=== PATIENT | male | born 1930 | race Caucasian/White ===

== ENCOUNTER 2017-11-04 06:49 | Inpatient (IN) | payer MEDICARE ==
[2017-11-03 11:08] LABS: BASOPHILS % (AUTO) 0.5 % (0-1); EOSINOPHILS # (AUTO) 0.1 X10'3 (0-0.9); EOSINOPHILS % (AUTO) 2.9 % (0-6); HEMATOCRIT 33.3 % (42.0-52.0); LYMPHOCYTES # (AUTO) 0.7 X10'3 (1.1-4.8); LYMPHOCYTES % (AUTO) 15.5 % (21-51); MEAN CORPUSCULAR HEMOGLOBIN 36.7 PG (27.0-31.0); MEAN CORPUSCULAR HGB CONC 33.2 % (33.0-36.5); MEAN CORPUSCULAR VOLUME 110.5 FL (78-98); MEAN PLATELET VOLUME 10.3 FL (7.4-10.4); MONOCYTES % (AUTO) 24.3 % (2-12); NEUTROPHILS # (AUTO) 2.5 X10'3 (1.8-7.7); NEUTROPHILS % (AUTO) 56.8 % (42-75); PLATELET COUNT 167 X10'3 (140-440); RED BLOOD COUNT 3.01 X10'6 (4.70-6.10); RED CELL DISTRIBUTION WIDTH 19.2 % (11.5-14.5); WHITE BLOOD COUNT 4.3 X10'3 (4.5-11.0)
[2017-11-03 11:09] LABS: INR 1.1 INR; PROTHROMBIN TIME 11.4 SECONDS (9.0-12.0)
[2017-11-03 11:11] LABS: ANION GAP 12 (8-16); BLOOD UREA NITROGEN 61 MG/DL (7-18); BUN/CREATININE RATIO 13.2 (5.4-32.0); CALCIUM 8.7 MG/DL (8.5-10.1); CHLORIDE 107 MMOL/L (99-107); CREATININE 4.61 MG/DL (0.60-1.10); GLUCOSE 112 MG/DL (70-104); POTASSIUM 3.8 MMOL/L (3.5-5.1); SODIUM 143 MMOL/L (135-145); TOTAL CARBON DIOXIDE 23.7 MMOL/L (24-32); eGFR 12 ML/MIN
[2017-11-03 11:47] LABS: ANISOCYTOSIS 2+; PLATELET ESTIMATE NORMAL; TOTAL CELLS COUNTED 100
[2017-11-03 11:48] LABS: GIANT PLATELET FEW; POLYCHROMASIA FEW; SCHISTOCYTES FEW; STOMATOCYTES 2+
[2017-11-03 11:49] LABS: LARGE PLATELETS FEW
[~2017-11-04] VITALS: Ht 172.7 cm; Wt 70.6 kg
[2017-11-04] VITALS (29 sets, daily range): BP systolic 98–139; BP diastolic 46–92
[~2017-11-04 06:49] MED LIST: ALLO100T PO; AMIO200T57 PO; APIX2.5T PO; ASPI81TA52 PO; ATOR10TA87 PO; DORZ10DR10 RIGHTEYE; NOR5T PO; SYN0.025T PO; TRAV5DRO4 EACHEYE; [UNRECOGNIZED DRUG - CODE] PO; [UNRECOGNIZED DRUG - CODE] SQ
[2017-11-04] MEDS ORDERED: atropine 0.1mg/ml 10ml syringe IV ONE (07:10)
[2017-11-04] MEDS ORDERED: MIDAZolam 5mg/ml 2ml vial IV ONE (07:10)
[2017-11-04] MEDS ORDERED: normal saline 1000ml 1,000 ML IV SCH (07:10)
[2017-11-04] MEDS ORDERED: amiodarone in dextrose, iso-osm 150mg/100ml bag IV ONE (07:10)
[2017-11-04] MEDS ORDERED: LORazepam 0.5 MG tablet PO ONE (07:10)
[2017-11-04] MEDS ORDERED: morphine 10mg/ml inj. IV ONE (07:10)
[2017-11-04] MEDS ORDERED: diphenhydrAMINE 25mg capsule PO ONE (07:10)
[2017-11-04] MEDS ORDERED: TURM500C4 PO (07:34)
[2017-11-04] MEDS ORDERED: CHOL10002 PO (07:34)
[2017-11-04] MEDS ORDERED: GLUC-193 PO (07:34)
[2017-11-04] MEDS ORDERED: LACT1CAP65 PO (07:34)
[2017-11-04] MEDS ORDERED: OMEG1CAP46 PO (07:34)
[2017-11-04] MEDS ORDERED: MULT-933 PO (07:34)
[2017-11-04] MEDS ORDERED: DOPamine 400mg/D5W 250ml 250 ML IV SCH (11:16)
[2017-11-04] MEDS ORDERED: potassium Cl 40MEQ/NS 500ml 500 ML IV PRN ×2 (11:55)
[2017-11-04] MEDS ORDERED: magnesium Cl slow-release 64mg tablet PO PRN (11:55)
[2017-11-04] MEDS ORDERED: magnesium 2GM in 50ml NS 50 ML IV PRN (11:55)
[2017-11-04] MEDS ORDERED: potassium Cl 20 mEq SR tablet PO PRN ×2 (11:55)
[2017-11-04] MEDS ORDERED: MORPHINE 2MG in 2ml NS syringe IV PRN (11:55)
[2017-11-04] MEDS ORDERED: ondansetron/PF 4mg/2ml inj IV PRN (11:55)
[2017-11-04] MEDS ORDERED: DOBUTamine-DoBUTrex 500mg/D5W 250 ML IV SCH (11:55)
[2017-11-04] MEDS ORDERED: magnesium 4gm in 100ml NS 100 ML IV PRN (11:55)
[2017-11-04] MEDS ORDERED: magnesium hydroxide 30ml (MOM) UD suspension PO PRN (11:55)
[2017-11-04] MEDS ORDERED: HYDROcodone/acetaminophen 5mg/325mg tablet PO PRN (11:55)
[2017-11-04] MEDS ORDERED: acetaminophen 325mg tablet PO PRN (11:55)
[2017-11-04] MEDS ORDERED: mag hydrox/Alum hydrox/simeth 30ml oral suspension PO PRN (11:55)
[2017-11-04] MEDS ORDERED: phytonadione inj. 5 MG in normal saline 100ml IV soln 99.5 ML IV ONE ×2 (13:55→14:30)
[2017-11-04] MEDS ORDERED: dorzolamide/timolol (Cosopt) ophthalmic drops 10ml bottle RIGHTEYE SCH (20:00)
[2017-11-04] MEDS: OMEGA-3/DHA/EPA/FISH OIL 1 EACH CAPSULE.DR PO SCH (20:41)
[2017-11-04] MEDS: TIMOLOL RIGHTEYE SCH (20:52)
[2017-11-04] MEDS: DORZOLAMIDE RIGHTEYE SCH (20:52)
[2017-11-04] MEDS: LATANOPROST EACHEYE SCH (21:02)
[2017-11-05] VITALS (17 sets, daily range): BP systolic 117–144; BP diastolic 54–68
[2017-11-05 05:51] LABS: BASOPHILS % (AUTO) 0.1 % (0-1); EOSINOPHILS # (AUTO) 0.2 X10'3 (0-0.9); EOSINOPHILS % (AUTO) 1.9 % (0-6); HEMOGLOBIN 10.8 g/dl (14.0-17.9); LYMPHOCYTES # (AUTO) 0.4 X10'3 (1.1-4.8); LYMPHOCYTES % (AUTO) 4.5 % (21-51); MEAN CORPUSCULAR HEMOGLOBIN 37.7 PG (27.0-31.0); MEAN CORPUSCULAR HGB CONC 33.8 % (33.0-36.5); MEAN CORPUSCULAR VOLUME 111.6 FL (78-98); MEAN PLATELET VOLUME 9.9 FL (7.4-10.4); MONOCYTES # (AUTO) 1.4 X10'3 (0-0.9); MONOCYTES % (AUTO) 16.4 % (2-12); NEUTROPHILS # (AUTO) 6.7 X10'3 (1.8-7.7); NEUTROPHILS % (AUTO) 77.1 % (42-75); PLATELET COUNT 146 X10'3 (140-440); RED BLOOD COUNT 2.87 X10'6 (4.70-6.10); WHITE BLOOD COUNT 8.6 X10'3 (4.5-11.0)
[2017-11-05 05:59] LABS: INR 1.1 INR; PROTHROMBIN TIME 11.2 SECONDS (9.0-12.0)
[2017-11-05 06:12] LABS: ALBUMIN 2.8 G/DL (3.4-5.0); ANION GAP 12 (8-16); BLOOD UREA NITROGEN 57 MG/DL (7-18); BUN/CREATININE RATIO 12.7 (5.4-32.0); CALCIUM 8.7 MG/DL (8.5-10.1); CHLORIDE 108 MMOL/L (99-107); CREATININE 4.49 MG/DL (0.60-1.10); GLUCOSE 118 MG/DL (70-104); MAGNESIUM 2.1 MG/DL (1.5-2.4); POTASSIUM 3.8 MMOL/L (3.5-5.1); SODIUM 144 MMOL/L (135-145); TOTAL CARBON DIOXIDE 24.4 MMOL/L (24-32); eGFR 13 ML/MIN
[2017-11-05] MEDS: K and/or MAG REPLACEMENT MC SCH (08:00)
[2017-11-05] MEDS ORDERED: CORTISONE ACETATE PO SCH (08:00)
[2017-11-05] MEDS ORDERED: GLUCOSAMINE PO SCH (08:00)
[2017-11-05] MEDS ORDERED: [UNRECOGNIZED DRUG - OTHER] PO SCH (08:00)
[2017-11-05] MEDS ORDERED: MSM PO SCH (08:00)
[2017-11-05] MEDS ORDERED: vitamin D (cholecalciferol) 1,000 unit tablet PO SCH ×2 (08:00→09:12)
[2017-11-05] MEDS ORDERED: CHONDROITIN A PO SCH (08:00)
[2017-11-05] MEDS ORDERED: latanoprost 0.005% 2.5ml ophthalmic drops EACHEYE SCH (08:00)
[2017-11-05] MEDS: levoTHYROXINE 25mcg tablet PO SCH (08:04)
[2017-11-05] MEDS: atorvastatin 10mg tablet PO SCH (08:04)
[2017-11-05] MEDS: multivitamins, therapeutics tablet PO SCH (08:04)
[2017-11-05] MEDS: amLODIPine 5mg tablet PO SCH (08:05)
[2017-11-05] MEDS: allopurinol 100mg tablet PO SCH (08:05)
[2017-11-05] MEDS: amiodarone 200mg tablet PO SCH (08:05)
[2017-11-05] MEDS: DORZOLAMIDE RIGHTEYE SCH ×2 (08:06→19:53)
[2017-11-05] MEDS: TIMOLOL RIGHTEYE SCH ×2 (08:06→19:53)
[2017-11-05] MEDS: OMEGA-3/DHA/EPA/FISH OIL 1 EACH CAPSULE.DR PO SCH ×2 (08:07→19:50)
[2017-11-05 08:57] LABS: ANISOCYTOSIS 2+; PLATELET ESTIMATE NORMAL
[2017-11-05] MEDS ORDERED: LIDOcaine 1.5% w/epinephrine 1:200,000 5ml ampul ONE ×2 (08:57→08:58)
[2017-11-05] MEDS ORDERED: fentaNYL/PF 50MCG/1 ML 2ML syringe ONE (10:31)
[2017-11-05] MEDS ORDERED: midazolam 2 mg/2 ml injection ONE (10:31)
[2017-11-05] MEDS ORDERED: normal saline 1000ml 1,000 ML IV SCH (10:55)
[2017-11-05] MEDS ORDERED: HYDROcodone/acetaminophen 5mg/325mg tablet PO PRN (10:55)
[2017-11-05] MEDS ORDERED: HYDROcodone/acetaminophen 10/325mg tab PO PRN (10:55)
[2017-11-05] MEDS: ceFAZolin 1GM/NS- ADD-VANTAGE 1 GM in NS 100ML IV SCH ×2 (15:09→22:39)
[2017-11-05] MEDS ORDERED: morphine 4 MG/ML inj SYRINge IV PRN (19:57)
[2017-11-05] MEDS: LATANOPROST EACHEYE SCH (20:20)
[2017-11-06 03:00] VITALS: BP 141/78
[2017-11-06 06:00] VITALS: BP 138/70
[2017-11-06 06:10] LABS: HEMATOCRIT 30.5 % (42.0-52.0); HEMOGLOBIN 10.2 g/dl (14.0-17.9); MEAN CORPUSCULAR HEMOGLOBIN 37.1 PG (27.0-31.0); MEAN CORPUSCULAR HGB CONC 33.6 % (33.0-36.5); MEAN CORPUSCULAR VOLUME 110.5 FL (78-98); MEAN PLATELET VOLUME 9.8 FL (7.4-10.4); PLATELET COUNT 119 X10'3 (140-440); RED BLOOD COUNT 2.76 X10'6 (4.70-6.10); RED CELL DISTRIBUTION WIDTH 18.6 % (11.5-14.5); WHITE BLOOD COUNT 11.6 X10'3 (4.5-11.0)
[2017-11-06 06:41] LABS: ALBUMIN 2.6 G/DL (3.4-5.0); ANION GAP 12 (8-16); BLOOD UREA NITROGEN 56 MG/DL (7-18); BUN/CREATININE RATIO 11.8 (5.4-32.0); CALCIUM 8.5 MG/DL (8.5-10.1); CHLORIDE 107 MMOL/L (99-107); CREATININE 4.75 MG/DL (0.60-1.10); GLUCOSE 95 MG/DL (70-104); MAGNESIUM 2.2 MG/DL (1.5-2.4); POTASSIUM 4.2 MMOL/L (3.5-5.1); SODIUM 141 MMOL/L (135-145); TOTAL CARBON DIOXIDE 22.3 MMOL/L (24-32); eGFR 12 ML/MIN
[2017-11-06] MEDS: ceFAZolin 1GM/NS- ADD-VANTAGE 1 GM in NS 100ML IV SCH (06:53)
[2017-11-06] MEDS: K and/or MAG REPLACEMENT MC SCH (06:55)
[2017-11-06 07:00] VITALS: BP 138/70
[2017-11-06] MEDS: multivitamins, therapeutics tablet PO SCH (07:04)
[2017-11-06] MEDS: levoTHYROXINE 25mcg tablet PO SCH (07:04)
[2017-11-06] MEDS: amLODIPine 5mg tablet PO SCH (07:04)
[2017-11-06] MEDS: amiodarone 200mg tablet PO SCH (07:04)
[2017-11-06] MEDS: allopurinol 100mg tablet PO SCH (07:04)
[2017-11-06] MEDS: OMEGA-3/DHA/EPA/FISH OIL 1 EACH CAPSULE.DR PO SCH (07:04)
[2017-11-06] MEDS: atorvastatin 10mg tablet PO SCH (07:04)
[2017-11-06] MEDS: TIMOLOL RIGHTEYE SCH (07:05)
[2017-11-06] MEDS: DORZOLAMIDE RIGHTEYE SCH (07:05)
[2017-11-06 07:16] LABS: PLATELET ESTIMATE DECREASED; TOTAL CELLS COUNTED 100
[2017-11-06 07:17] LABS: ANISOCYTOSIS 2+; POLYCHROMASIA 1+
[2017-11-06] MEDS ORDERED: CEPH250T PO (09:30)
[2017-11-06] MEDS ORDERED: METO25TA6 PO (09:37)
== END 2017-11-06 11:50 | disposition home or self-care (01) | DRG 243 ==
LOC: SSTAY O 06:49 → PCU 3S 11:51
PROVIDERS: ADMIT Internal Medicine; ATTEND Internal Medicine
PROC: 5A2204Z Restoration of Cardiac Rhythm, Single (ICD-10-PCS; 2017-11-04)
PROC: 0JH606Z Insertion of Pacemaker, Dual Chamber into Chest Subcutaneous Tissue and Fascia, Open Approach (ICD-10-PCS; principal; 2017-11-05)
PROC: 02H63JZ Insertion of Pacemaker Lead into Right Atrium, Percutaneous Approach (ICD-10-PCS; 2017-11-05)
PROC: 02HK3JZ Insertion of Pacemaker Lead into Right Ventricle, Percutaneous Approach (ICD-10-PCS; 2017-11-05)
DX: I49.5 Sick sinus syndrome (principal); E44.0 Moderate protein-calorie malnutrition; I48.91 Unspecified atrial fibrillation; I10 Essential (primary) hypertension; E29.1 Testicular hypofunction; H40.9 Unspecified glaucoma; I25.10 Atherosclerotic heart disease of native coronary artery without angina pectoris; M10.9 Gout, unspecified; Z95.1 Presence of aortocoronary bypass graft; Z79.899 Other long term (current) drug therapy; Z79.82 Long term (current) use of aspirin; Z68.23 Body mass index [BMI] 23.0-23.9, adult
CPT/HCPCS: 33208; 36415; 71046; 80048; 83735; 85025; 85610; 87070; 92960; 93005; 99152; 99153; A4565; A4620; A6212; C1785; C1898; J0282; J0461; J0690; J1250; J1265; J2250; J2270; J2405; J3010; J3430; J3490; J7030; Q0163

== ENCOUNTER 2018-01-07 07:35 | Day surgery (SDC) | payer MEDICARE ==
[~2018-01-07] VITALS: Ht 172.7 cm; Wt 66.0 kg
[2018-01-07] VITALS (7 sets, daily range): BP systolic 139–162; BP diastolic 74–78
[~2018-01-07 07:35] MED LIST changes: -APIX2.5T PO; +CHOL10002 PO; +GLUC-193 PO; +LACT1CAP65 PO; +METO25TA6 PO; +MULT-933 PO; +OMEG1CAP46 PO; +TURM500C4 PO
[2018-01-07] MEDS ORDERED: normal saline 1000ml 1,000 ML IV SCH (07:55)
[2018-01-07] MEDS ORDERED: APIX2.5T PO (09:48)
[2018-01-07] MEDS ORDERED: heparin 1,000unit/ml 10ml vial 10 ML ONE (10:34)
[2018-01-07] MEDS ORDERED: fentaNYL/PF 50MCG/1 ML 2ML syringe ONE (10:34)
[2018-01-07] MEDS ORDERED: midazolam 2 mg/2 ml injection ONE (10:34)
[2018-01-07] MEDS ORDERED: LIDOcaine 1%/PF (10mg/ml) 5ml vial ONE (10:34)
[2018-01-07] MEDS ORDERED: heparin 1,000 units/ml 10ml inj ICATH ONE (10:35)
[2018-01-07] MEDS ORDERED: midazolam 2 mg/2 ml injection IV PRN (10:35)
[2018-01-07] MEDS ORDERED: fentaNYL/PF 50MCG/1 ML 2ML syringe IV PRN (10:35)
[2018-01-07] MEDS ORDERED: LIDOcaine 1%/PF (10mg/ml) 5ml vial SQ ONE (10:35)
[2018-01-07] MEDS ORDERED: gelatin sponge, absorbable (Gelfoam 12-7MM) sponge TP ONE (11:19)
== END 2018-01-07 12:55 | disposition home or self-care (01) ==
LOC: SSTAY O 07:35
PROVIDERS: ATTEND Radiology Diagnostic Radiology
DX: N18.6 End stage renal disease (principal); I25.10 Atherosclerotic heart disease of native coronary artery without angina pectoris; I48.2 Chronic atrial fibrillation; D46.9 Myelodysplastic syndrome, unspecified; Z79.01 Long term (current) use of anticoagulants; Z95.1 Presence of aortocoronary bypass graft; Z79.82 Long term (current) use of aspirin; Z79.899 Other long term (current) drug therapy
CPT/HCPCS: 36558; 76937; 77001; 99152; 99153; A6449; A9270; C1750; C1894; J1644; J2001; J2250; J3010; J7030; A4620